=== PATIENT | female | born 1975 | race Hispanic/Latino ===

== ENCOUNTER 2022-09-30 09:51 | Emergency (ER) | payer SELFPAY ==
[~2022-09-30] VITALS: Ht 167.6 cm; Wt 124.3 kg
[2022-09-30 10:00] VITALS: O2SAT 97
[2022-09-30] MEDS ORDERED: DIFLUCAN150 MG PO (10:53)
[2022-09-30] MEDS ORDERED: CIPRO500 MG PO (10:54)
== END 2022-09-30 11:04 | disposition home or self-care (01) ==
LOC: FSED 09:59
DX: R30.0 Dysuria (principal); N39.0 Urinary tract infection, site not specified; B37.31 Acute candidiasis of vulva and vagina
CPT/HCPCS: 81003; 81025; 99282